=== PATIENT | female | born 1945 | race Caucasian/White ===

== ENCOUNTER 2018-02-12 09:10 | Outpatient (CLI) | payer MEDICARE, BC | END 2018-02-12 09:11 | disposition home or self-care (01) | LOC: BICMAMMO 09:10 | PROVIDERS: ATTEND Obstetrics & Gynecology | DX: Z13.820 Encounter for screening for osteoporosis (principal); M81.0 Age-related osteoporosis without current pathological fracture | CPT/HCPCS: 77080 ==

== ENCOUNTER 2019-10-07 08:48 | Outpatient (CLI) | payer MEDICARE, BC ==
--- NOTE | 2019-10-07 10:40 | MRI ---
MRI Lower Ext Jt Rt W WO Con HISTORY: Right buttocks pain that radiates to knee. Evaluation for neuroma of sciatic nerve. COMPARISON: None. FINDINGS: The visualized intrapelvic contents appear unremarkable. Small [id number] images of the right hip show arthritic changes of the hip. There is blunting to t he labrum suggesting some degenerative type change of the hip labrum. There is severe atrophy of the gluteus minimus muscle. There are tendinosis changes of the gluteus mi nimus and medius tendon insertions. The visualized portion of the sciatic nerve shows no evidence of any abnormal enhancement. IMPRESSION: 1. Marked atrophy of the gluteus minimus muscle. Mild tendinosis of the gluteus minimus and medius te ndon insertions. 2. Arthritic changes of the right hip. 3. No evidence of a neuroma. 4. Tendinosis of the hamstring tendon origin.
--- NOTE | 2019-10-07 10:44 | MRI ---
MRI Pelvis W WO Con HISTORY: Right buttocks pain with pain radiating into right knee. Evaluation for neuroma. COMPARISON: MRI of right hip done earlier. FINDINGS: The SI joints are symmetric in appearance. There is no evidence of any pelvic insufficiency -type fracture. There is fairly pronounced atrophy of the both the right and left gluteus minimus muscles. There are also tendinosis changes of both hamstring tendon origins. No abnormal contrast enhancement of the sacral nerve roots or sciatic nerve. IMPRESSION: 1. Moderate atrophy of bilateral gluteus minimus muscles. 2. Tendinosis of the hamstring tendon origins. 3. No evidence for a neuroma.
== END 2019-10-07 08:49 | disposition home or self-care (01) ==
LOC: TBSIIMAG 08:48
PROVIDERS: ATTEND Neurological Surgery
DX: M79.604 Pain in right leg (principal); R20.8 Other disturbances of skin sensation; M62.58 Muscle wasting and atrophy, not elsewhere classified, other site; M76.9 Unspecified enthesopathy, lower limb, excluding foot; M16.11 Unilateral primary osteoarthritis, right hip
CPT/HCPCS: 72197; 82565

== ENCOUNTER 2023-09-27 07:59 | Outpatient (CLI) | payer MEDICARE, BC ==
[2023-09-27 09:27] LABS: #Basophils 0.1 10x3/uL (0.0-0.2); #Eosinphils 0.1 10x3/uL (0.0-0.5); #Monocytes 0.4 10x3/uL (0.0-1.1); #Neutrophils 2.4 10x3/uL (1.5-8.4); %Basophils 1.2 % (0.0-2.0); %Eosinophils 3.2 % (0.0-6.0); %Lymphocytes 26.5 % (18.0-47.0); %Monocytes 10.2 % (0.0-10.0); %Neutrophils 58.9 % (40.0-75.0); Hematocrit 41.7 % (34.9-44.5); Hemoglobin 14.1 g/dL (12.0-15.5); Mean Corpuscular HGB CONC 33.8 g/dL (32.0-36.0); Mean Corpuscular Hemoglobin 31.9 pg (27.0-33.0); Mean Corpuscular Volume 94.3 fl (81.6-98.3); Mean Platelet Volume 9.5 fl (7.4-10.4); Platelet Count 279 10x3/uL (150-450); Red Blood Cell (RBC) Count 4.42 10x6/uL (3.90-5.03); White Blood Cell (WBC) Count 4.1 10x3/uL (3.5-10.5)
[2023-09-27 10:19] LABS: ALT (SGPT) 24 U/L (8-55); AST (SGOT) 25 U/L (5-34); Albumin 4.2 g/dL (3.4-4.8); Alkaline Phosphatase 83 U/L (40-110); Anion Gap 13 mmol/L (10-20); BUN (Urea Nitrogen) 17 mg/dL (9.8-20.1); Bilirubin, Total 0.7 mg/dL (0.2-1.2); Calc. Creatinine Clearance 0 mL/min (70-130); Calcium 9.3 mg/dL (7.8-10.44); Carbon Dioxide 25 mmol/L (23-31); Chloride 107 mmol/L (98-107); Estimated GFR 81; Globulin 2.6 g/dL (2.4-3.5); Glucose 91 mg/dL (83-110); Potassium 4.4 mmol/L (3.5-5.1); Protein, Total 6.8 g/dL (5.8-8.1); Sodium 141 mmol/L (136-145)
== END 2023-09-27 08:00 | disposition home or self-care (01) ==
LOC: LABBT 07:59
PROVIDERS: ATTEND Surgery
DX: Z01.818 Encounter for other preprocedural examination (principal); K40.90 Unilateral inguinal hernia, without obstruction or gangrene, not specified as recurrent; K43.2 Incisional hernia without obstruction or gangrene
CPT/HCPCS: 80053; 85025; 93005; 93010

== ENCOUNTER 2023-10-04 09:31 | Day surgery (SDC) | payer MEDICARE, BC ==
[2023-09-27 08:36] VITALS: BMI 26.5
[2023-10-04] MEDS ORDERED: Bupivacaine 0.25% HCL 30 ML VIAL ONE (09:37)
[2023-10-04] MEDS ORDERED: EPINEPHrine 1 MG/ML VIAL ONE (09:37)
[2023-10-04] MEDS ORDERED: Famotidine/PF 20 mg/2ml Vial ONE (09:45)
[2023-10-04] MEDS ORDERED: Sodium Chloride 0.9% 100 ML ONE (09:52)
[2023-10-04] MEDS ORDERED: CEFAZOLIN 2 GM VIAL ONE (09:52)
[2023-10-04] MEDS ORDERED: Lidocaine 1% PF 5 ML VIAL ONE (09:56)
[2023-10-04] MEDS ORDERED: Lidocaine 1% (PF) 30 ML VIAL ONE (09:57)
[2023-10-04] MEDS ORDERED: Dexamethasone 20 MG/5 ML VIAL ONE (10:05)
[2023-10-04] MEDS ORDERED: PROPOFOL 200 MG/20 ML VIAL ONE (10:05)
[2023-10-04] MEDS ORDERED: Rocuronium Bromide 10 MG/ML (10ML VIAL) ONE (10:05)
[2023-10-04] MEDS ORDERED: Ondansetron PF 4 MG/2 ML Vial ONE ×3 (10:29→11:24)
[2023-10-04] MEDS ORDERED: Ketorolac Tromethamine 30 MG/ML VIAL ONE (10:35)
[2023-10-04] MEDS ORDERED: Fentanyl 250 MCG/5 ML VIAL ONE (11:21)
[2023-10-04] MEDS ORDERED: fentaNYL PF 100 MCG/2 ML SYRINGE ONE (11:24)
[2023-10-04] MEDS ORDERED: diphenhydrAMINE 50 MG/ML VIAL ONE (11:42)
[2023-10-04] MEDS ORDERED: SUGAMMADEX SODIUM 200 MG/2 ML VIAL ONE (12:02)
== END 2023-10-04 14:37 | disposition home or self-care (01) ==
LOC: SDC 09:31
PROVIDERS: ATTEND Surgery
PROC: 0YU54JZ Supplement Right Inguinal Region with Synthetic Substitute, Percutaneous Endoscopic Approach (ICD-10-PCS; principal; 2023-10-04)
DX: K40.30 Unilateral inguinal hernia, with obstruction, without gangrene, not specified as recurrent (principal); K45.8 Other specified abdominal hernia without obstruction or gangrene; G43.909 Migraine, unspecified, not intractable, without status migrainosus; M81.0 Age-related osteoporosis without current pathological fracture; E78.5 Hyperlipidemia, unspecified; Z90.710 Acquired absence of both cervix and uterus; Z90.49 Acquired absence of other specified parts of digestive tract; Z98.890 Other specified postprocedural states; Z88.8 Allergy status to other drugs, medicaments and biological substances
CPT/HCPCS: 49650; A4314; C1781; J0171; J1100; J1200; J1885; J2001; J2405; J2704; J3010; J3490; S0020; S0028